=== PATIENT | female | born 1950 | race Caucasian/White ===

== ENCOUNTER 2023-04-02 15:14 | Emergency (ER) | payer OTHER ==
[~2023-04-02] VITALS: Ht 160 cm; Wt 56.3 kg
[2023-04-02 15:23] VITALS: BP 181/82
--- NOTE | 2023-04-02 16:37 | ED Headache ---
General Chief Complaint: Head/Cervical Problems Stated Complaint: NEED LT EYE OCULAR SCAN Nursing Triage Note: Patient c/o headache in back of head and bilat. temporals. Patient states the pain is a pressure and states it started on Saturday. Patient c/o nausea, but denies any vomiting. Patient denies any visual changes. Patient states she was dizzy this am and states she had palpitations with shortness of breath. Source: patient (RENA LINDER) History of Present Illness Initial Comments 72yo F with h/o anxiety, PTSD, chronic fatigue, COPD, and recurrent falls d/t gait issues presents to the ED with c/o bitemporal GHOSH w/radiation to occipital region, palpitations, and worsening balance issues that started on 03/29. Pt is poor historian. Pt states that on 03/29, she experienced sudden onset of L temporal pain and L eye "clouding over" which prompted her to see Dr. Hua at the [place] [facility]. 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 Pt was seen by optometry who then recommended that the pt be seen in the ED for imaging to evaluate pt for stroke. Pt did not go to ED and states that symptoms did not resolve or get worse during this time. Today, [facility] be seen in the ED for a stroke, prompting her to come to ED today. In room, pt states that she is still experiencing a bitemporal GHOSH that is "squeezing" and constant. Notes associated pounding in ears that worsens when she bends down. Pt also states that she has been experiencing palpitations with associated chest pressure intermittently and notes that she has had increased anxiety due to new symptoms and "scheduling appointments". Pt denies current loss of vision in L eye or any visual disturbances, unsure when "clouding" of left eye resolved. Pt is not currently taking anything for symptoms. Denies anticoagulation, nausea, vomiting, fever, chills, dysarthria, motor/sensory deficits, and new SOA. Timing/Duration: constant Severity/Quality: pressure Location: frontal, occipital Associated Symptoms: No nausea/vomiting, No vision changes, No weakness (RENA LINDER) Date Seen by Provider: Apr 02, 2023 Time Seen by Provider: 15:45 (AV KASPER MD) Allergies and Home Medications Allergies Coded Allergies: No Known Drug Allergies (Unverified , 04/02/23) Patient Home Medication List Home Medication List Reviewed: Yes (RENA LINDER) Clopidogrel Bisulfate (Clopidogrel) 75 Mg Tablet, 75 MG PO DAILY Prescribed by: AV KASPER on 04/02/23 193 Review of Systems Review of Systems Constitutional: no symptoms reported; No chills, No fever Eyes: Other (L eye "clouding over"-resolved) Ears, Nose, Mouth, Throat: no symptoms reported Respiratory: no symptoms reported Cardiovascular: palpitations (intermittent), other (intermittent chest pressure ) Gastrointestinal: no symptoms reported; No nausea, No vomiting Genitourinary: no symptoms reported Musculoskeletal: no symptoms reported Skin: no symptoms reported Psychiatric/Neurological: Headache (bitemporal with radiation to occipital region) (RENA LINDER) All Other Systems Reviewed Negative Unless Noted: Yes (RENA LINDER) Past Ukdbmgs-Upjflq-Fzqvxy Hx Patient Social History Tobacco Use?: Yes Tobacco type used: Cigarettes Smoking Status: Current Everyday Smoker Use of E-Cig and/or Vaping dev: No Substance use?: No Alcohol Use?: No (RENA LINDER) Immunizations Up To Date Influenza Vaccine Up-to-Date: Yes; Up-to-Date (RENA LINDER) Past Medical History Surgeries: Yes Gallbladder, Tubal Ligation Respiratory: Yes COPD Cardiac: No Neurological: Yes (Sciatica ) COMPENSATION DIRECTOR History: Tubal Ligation Genitourinary: No Gastrointestinal: Yes ("chronic gastrointestinal problems") Gall Bladder Disease Musculoskeletal: No Endocrine: Yes Hypothyroidsim HEENT: No Cancer: No Psychosocial: Yes (chronic fatigue) Anxiety, PTSD (RENA LINDER) Family Medical History No Pertinent Family Hx (RENA LINDER) Physical Exam Vital Signs Vital Signs - First Documented 04/02/23 15:23 Temp 36.6 Pulse 71 Resp 14 B/P (MAP) 181/82 (115) O2 Delivery Room Air (AV KASPER MD) Vital Signs Capillary Refill : (RENA LINDER) Height, Weight, BMI Height: '" Weight: lbs. oz. kg; 21.00 BMI Method: General Appearance: WD/WN, no apparent distress HEENT: PERRL/EOMI, pharynx normal Cardiovascular: regular rate, rhythm, no gallop Respiratory: lungs clear, normal breath sounds, no respiratory distress, no accessory muscle use Gastrointestinal: non tender, soft Extremities: non-tender, normal inspection Psychiatric: alert, oriented x 3 Crainal Nerves: normal hearing, normal speech, PERRL Motor/Sensory: no motor deficit, no sensory deficit, no pronator drift Skin: normal color, warm/dry Lymphatic: no adenopathy (RENA LINDER) Progress/Results/Core Measures Results/Orders Lab Results Laboratory Tests Test 04/02/23 16:38 Range/Units White Blood Count 7.4 4.3-11.0 10^3/uL Red Blood Count 4.63 3.80-5.11 10^6/uL Hemoglobin 13.5 11.5-16.0 g/dL Hematocrit 40 35-52 % Mean Corpuscular Volume 86 80-99 fL Mean Corpuscular Hemoglobin 29 25-34 pg Mean Corpuscular Hemoglobin Concent 34 32-36 g/dL Red Cell Distribution Width 12.8 10.0-14.5 % Platelet Count 212 130-400 10^3/uL Mean Platelet Volume 9.4 9.0-12.2 fL Immature Granulocyte % (Auto) 1 % Neutrophils (%) (Auto) 57 42-75 % Lymphocytes (%) (Auto) 35 12-44 % Monocytes (%) (Auto) 6 0-12 % Eosinophils (%) (Auto) 1 0-10 % Basophils (%) (Auto) 1 0-10 % Neutrophils # (Auto) 4.2 1.8-7.8 10^3/uL Lymphocytes # (Auto) 2.6 1.0-4.0 10^3/uL Monocytes # (Auto) 0.4 0.0-1.0 10^3/uL Eosinophils # (Auto) 0.1 0.0-0.3 10^3/uL Basophils # (Auto) 0.1 0.0-0.1 10^3/uL Immature Granulocyte # (Auto) 0.0 0.0-0.1 10^3/uL Erythrocyte Sedimentation Rate 36 H 0-30 MM/HR Sodium Level 129 L 135-145 MMOL/L Potassium Level 4.0 3.6-5.0 MMOL/L Chloride Level 97 L 98-107 MMOL/L Carbon Dioxide Level 24 21-32 MMOL/L Anion Gap 8 5-14 MMOL/L Blood Urea Nitrogen 11 7-18 MG/DL Creatinine 0.69 0.60-1.30 MG/DL Estimat Glomerular Filtration Rate 92 BUN/Creatinine Ratio 16 Glucose Level 97 70-105 MG/DL Calcium Level 9.4 8.5-10.1 MG/DL Corrected Calcium 9.4 8.5-10.1 MG/DL Total Bilirubin 0.4 0.1-1.0 MG/DL Aspartate Amino Transf (AST/SGOT) 13 5-34 U/L Alanine Aminotransferase (ALT/SGPT) 10 0-55 U/L Alkaline Phosphatase 74 40-136 U/L Total Protein 7.8 6.4-8.2 GM/DL Albumin 4.0 3.2-4.5 GM/DL (AV KASPER MD) My Orders Orders - AV KASPER MD Ed Iv/Invasive Line Start (04/02/23 16:35) Cbc With Automated Diff (04/02/23 16:35) Comprehensive Metabolic Panel (04/02/23 16:35) Erythrocyte Sedimentation Rate (04/02/23 16:35) Ct Head Wo (04/02/23 16:35) Ct Angio Head/Neck (04/02/23 17:19) Iohexol Injection (Omnipaque 350 Mg/Ml 1 (04/02/23 17:30) Received Contrast (Hold Metformin- Contr (04/02/23 17:30) Ns (Ivpb) 100 Ml (Sodium Chloride 0.9% 1 (04/02/23 17:30) Clopidogrel Tablet (Clopidogrel Tablet) (04/02/23 19:00) Aspirin Chewable Tablet (Aspirin Chewabl (04/02/23 19:00) (AV KASPER MD) Medications Given in ED Current Medications Medications Dose Ordered Sig/Ricardo Route Start Time Stop Time Status Last Admin Dose Admin Aspirin 81 mg ONCE ONCE PO 04/02/23 19:00 04/02/23 19:01 DC 04/02/23 19:06 81 MG Clopidogrel Bisulfate 300 mg ONCE ONCE PO 04/02/23 19:00 04/02/23 19:01 DC 04/02/23 19:06 300 MG (AV KASPER MD) Vital Signs/I&O 04/02/23 15:23 Temp 36.6 Pulse 71 Resp 14 B/P (MAP) 181/82 (115) O2 Delivery Room Air (AV KASPER MD) Blood Pressure Mean: 115 Progress Progress Note : Time: 19:34 Progress Note discussed with [facility] stroke Neurology at 1830 (AV KASPER MD) Diagnostic Imaging Diagonstic Imaging: CT Comments [facility], [place] NAME: BRENNEN RANKIN [facility] REC#: [id number] PT STATUS: REG ER : 1950 PHYSICIAN: AV KASPER MD ADMIT DATE: 04/02/23/ER Draft Date of Exam:04/02/23 CT ANGIO HEAD/NECK PROCEDURE: CT angiography of the head and CT angiography of the neck with and without contrast. TECHNIQUE: Contiguous noncontrast images were obtained from the skull base through the vertex. After intravenous contrast administration, helical CT angiography of the neck was performed. Source data was reformatted into 3D MIP projections. Delayed post contrast acquisition was also obtained. Auto Exposure Controls were utilized during the CT exam to meet ALARA standards for radiation dose reduction. INDICATION: Transient loss of vision in the right eye as well as headaches in the back of the head and bilateral temporal regions. Patient also complains of nausea as well as dizziness. FINDINGS: Delayed postcontrast imaging through the brain is without evidence of an enhancing lesion. CT angiographic portion of the exam demonstrates a three-vessel branching pattern to the aortic arch. Both the right and left common carotid arteries are widely patent. There is a large amount of calcified plaque at the carotid bifurcations bilaterally. A [id number]-hc-ssfazmzm narrowing of the proximal right ICA is noted. There is a high-grade stenosis of the proximal left ICA. Right internal carotid artery is moderately tortuous but appears to be patent. Left internal carotid artery is patent. There is some calcified plaque at the carotid siphons bilaterally but no high-grade stenosis is identified. The vertebral arteries are codominant but widely patent. The basilar artery is patent. There appears to be a origin of the right MANAGER BEAUTY which appears to be widely patent. Left MANAGER BEAUTY is patent. Right and left anterior cerebral arteries are widely patent. M1 and M2 segments of the right and left middle cerebral arteries appear to be patent. No thromboembolism or large vessel occlusion is identified. The upper lung basurto demonstrate marked pleural-parenchymal scarring with severe centrilobular emphysematous changes noted. IMPRESSION: A high-grade stenosis of the left proximal ICA with mild narrowing of the proximal right ICA. No thromboemboli or large vessel occlusion is identified. Dictated on workstation # [id number] Dict: 04/02/23 1751 Trans: 04/02/23 1804 [id number] Interpreted by: JONY MAHONEY MD Electronically signed by: Diagonstic Imaging: CT Comments [facility], [place] NAME: BRENNEN RANKIN [facility] REC#: [id number] PT STATUS: REG ER : 1950 PHYSICIAN: AV KASPER MD ADMIT DATE: 04/02/23/ER Draft Date of Exam:04/02/23 CT ANGIO HEAD/NECK PROCEDURE: CT angiography of the head and CT angiography of the neck with and without contrast. TECHNIQUE: Contiguous noncontrast images were obtained from the skull base through the vertex. After intravenous contrast administration, helical CT angiography of the neck was performed. Source data was reformatted into 3D MIP projections. Delayed post contrast acquisition was also obtained. Auto Exposure Controls were utilized during the CT exam to meet ALARA standards for radiation dose reduction. INDICATION: Transient loss of vision in the right eye as well as headaches in the back of the head and bilateral temporal regions. Patient also complains of nausea as well as dizziness. FINDINGS: Delayed postcontrast imaging through the brain is without evidence of an enhancing lesion. CT angiographic portion of the exam demonstrates a three-vessel branching pattern to the aortic arch. Both the right and left common carotid arteries are widely patent. There is a large amount of calcified plaque at the carotid bifurcations bilaterally. A upfb-ya-jcxosfcn narrowing of the proximal right ICA is noted. There is a high-grade stenosis of the proximal left ICA. Right internal carotid artery is moderately tortuous but appears to be patent. Left internal carotid artery is patent. There is some calcified plaque at the carotid siphons bilaterally but no high-grade stenosis is identified. The vertebral arteries are codominant but widely patent. The basilar artery is patent. There appears to be a origin of the right MANAGER BEAUTY which appears to be widely patent. Left MANAGER BEAUTY is patent. Right and left anterior cerebral arteries are widely patent. M1 and M2 segments of the right and left middle cerebral arteries appear to be patent. No thromboembolism or large vessel occlusion is identified. The upper lung basurto demonstrate marked pleural-parenchymal scarring with severe centrilobular emphysematous changes noted. IMPRESSION: A high-grade stenosis of the left proximal ICA with mild narrowing of the proximal right ICA. No thromboemboli or large vessel occlusion is identified. Dictated on workstation # [id number] Dict: 04/02/23 1751 Trans: 04/02/23 1804 [id number] Interpreted by: JONY MAHONEY MD Electronically signed by: (AV KASPER MD) Departure Impression Primary Impression: Carotid artery stenosis Qualified Codes: I65.22 - Occlusion and stenosis of left carotid artery Disposition: HOME, SELF-CARE Condition: Stable Departure-Patient Inst. Decision time for Depature: 19:22 (AV KASPER MD) Referrals: NO,LOCAL PHYSICIAN (PCP) Primary Care Physician Patient Instructions: Carotid Artery Stenosis (DC) Add. Discharge Instructions: You have been started on a platelet clotting inhibitor. This is Plavix. Also known as clopidogrel. You will take 75 mg once daily for 21 days. I have sent this to the pharmacy in [place]. We are also starting you on baby aspirin daily. Once the 21 days have passed you will continue on baby aspirin every day. [facility] within the next 2 weeks to see a vascular surgeon about the narrowing of your carotid artery on the left side. The stroke doctors recommend follow-up within 2 weeks for the best possible outcome. If you have any other vision loss or speech difficulty or weakness on one side of your body more than the other please return immediately to the emergency department for reevaluation. Scripts Atorvastatin Calcium (Atorvastatin Calcium) 40 Mg Tablet 40 MG PO DAILY, #30 TAB Prov: AV KASPER MD 04/02/23 Clopidogrel Bisulfate (Clopidogrel) 75 Mg Tablet 75 MG PO DAILY, #21 TAB Prov: AV KASPER MD 04/02/23 Verification and Attestation of Medical Student E/M Service A medical student performed and documented this service in my presence. I reviewed and verified all information documented by the medical student and made modifications to such information, when appropriate. I personally performed the physical exam and medical decision making. Av Kasper, Apr 02, 2023,19:35 (AV KASPER MD) RENA LINDER Apr 02, 2023 16:37 AV KASPER MD Apr 02, 2023 18:36
[2023-04-02 16:41] LABS: BASOPHILS # (AUTO) 0.1 10^3/uL (0.0-0.1); BASOPHILS % (AUTO) 1 % (0-10); EOSINOPHILS # (AUTO) 0.1 10^3/uL (0.0-0.3); EOSINOPHILS % (AUTO) 1 % (0-10); HEMATOCRIT 40 % (35-52); HEMOGLOBIN 13.5 g/dL (11.5-16.0); LYMPHOCYTES # (AUTO) 2.6 10^3/uL (1.0-4.0); LYMPHOCYTES % (AUTO) 35 % (12-44); MEAN CORPUSCULAR HEMOGLOBIN 29 pg (25-34); MEAN CORPUSCULAR HGB CONC 34 g/dL (32-36); MEAN CORPUSCULAR VOLUME 86 fL (80-99); MEAN PLATELET VOLUME 9.4 fL (9.0-12.2); MONOCYTES # (AUTO) 0.4 10^3/uL (0.0-1.0); MONOCYTES % (AUTO) 6 % (0-12); NEUTROPHILS # (AUTO) 4.2 10^3/uL (1.8-7.8); NEUTROPHILS % (AUTO) 57 % (42-75); PLATELET COUNT 212 10^3/uL (130-400); WHITE BLOOD COUNT 7.4 10^3/uL (4.3-11.0)
[2023-04-02 16:55] LABS: BILIRUBIN,TOTAL 0.4 MG/DL (0.1-1.0); CALCIUM 9.4 MG/DL (8.5-10.1); CREATININE SERUM 0.69 MG/DL (0.60-1.30); TOTAL PROTEIN 7.8 GM/DL (6.4-8.2)
--- NOTE | 2023-04-02 17:02 | Diagnostic Imaging Report ---
EXAMINATION: CT head without contrast. TECHNIQUE: Multiple contiguous axial images were obtained through the brain without the use of intravenous contrast. All CT scans use one or more of the following dose optimizing techniques: automated exposure control, MA and/or KvP adjustment based on patient size and exam type or iterative reconstruction. HISTORY: Severe headache. Visual changes. Dizziness. COMPARISON: None available. FINDINGS: No large acute territorial ischemia, mass, or hemorrhage. No midline shift or mass effect. The ventricles, cortical sulci, and basilar cisterns are patent and unremarkable. The orbits are normal. Paranasal sinuses are normal. Mastoid air cells are clear. No soft tissue abnormality is seen. No osseous lesions or fractures are seen. IMPRESSION: 1. No large acute territorial ischemia, mass, or hemorrhage. Dictated by: Dictated on workstation # [id number]
[2023-04-02 17:06] LABS: ERYTHROCYTE SEDIMENTATION RATE 36 MM/HR (0-30)
[2023-04-02] MEDS ORDERED: NS 100 ML (IVPB) BAG IV ONE (17:30)
[2023-04-02] MEDS ORDERED: HOLD METFORMIN - RECEIVED CONTRAST 20 ML VIAL IV SCH (17:30)
[2023-04-02] MEDS ORDERED: IOHEXOL 350 MG/ML 100 ML (OMNIPAQUE 350) VIAL IV ONE (17:30)
--- NOTE | 2023-04-02 18:04 | Diagnostic Imaging Report ---
PROCEDURE: CT angiography of the head and CT angiography of the neck with and without contrast. TECHNIQUE: Contiguous noncontrast images were obtained from the skull base through the vertex. After intravenous contrast administration, helical CT angiography of the neck was performed. Source data was reformatted into 3D MIP projections. Delayed post contrast acquisition was also obtained. Auto Exposure Controls were utilized during the CT exam to meet ALARA standards for radiation dose reduction. INDICATION: Transient loss of vision in the right eye as well as headaches in the back of the head and bilateral temporal regions. Patient also complains of nausea as well as dizziness. FINDINGS: Delayed postcontrast imaging through the brain is without evidence of an enhancing lesion. CT angiographic portion of the exam demonstrates a three-vessel branching pattern to the aortic arch. Both the right and left common carotid arteries are widely patent. There is a large amount of calcified plaque at the carotid bifurcations bilaterally. A egzu-yq-aruoexjs narrowing of the proximal right ICA is noted. There is a high-grade stenosis of the proximal left ICA. Right internal carotid artery is moderately tortuous but appears to be patent. Left internal carotid artery is patent. There is some calcified plaque at the carotid siphons bilaterally but no high-grade stenosis is identified. The vertebral arteries are codominant but widely patent. The basilar artery is patent. There appears to be a origin of the right PUBLIC IMPROVEMENT INSPECTOR which appears to be widely patent. Left PUBLIC IMPROVEMENT INSPECTOR is patent. Right and left anterior cerebral arteries are widely patent. M1 and M2 segments of the right and left middle cerebral arteries appear to be patent. No thromboembolism or large vessel occlusion is identified. The upper lung basurto demonstrate marked pleural-parenchymal scarring with severe centrilobular emphysematous changes noted. IMPRESSION: A high-grade stenosis of the left proximal ICA with mild narrowing of the proximal right ICA. No thromboemboli or large vessel occlusion is identified. Dictated by: Dictated on workstation # [id number]
[2023-04-02] MEDS ORDERED: CLOPIDOGREL 300 MG TABLET PO ONE (19:00)
[2023-04-02] MEDS ORDERED: ASPIRIN 81 MG CHEWABLE TABLET PO ONE (19:00)
[2023-04-02] MEDS ORDERED: CLOP75TA28 PO (19:33)
[2023-04-02] MEDS ORDERED: ATOR40TA70 PO (19:44)
== END 2023-04-02 20:01 | disposition home or self-care (01) ==
LOC: EDUNIT# 15:14 → ER 15:20
DX: I65.22 Occlusion and stenosis of left carotid artery (principal); F17.210 Nicotine dependence, cigarettes, uncomplicated
CPT/HCPCS: 36415; 70450; 70496; 70498; 80053; 85025; 85652